=== PATIENT | male | born 1960 | race Caucasian/White ===

== ENCOUNTER 2017-03-16 17:48 | Emergency (ER) | payer BC ==
[2017-03-16] MEDS ORDERED: methylPREDNISolone 125 MG* 2 ML VIAL IV ONE (18:12)
[2017-03-16] MEDS ORDERED: Famotidine IV* 10 MG/ML 2 ML (20 mg) IV SLOW PU ONE (18:12)
[2017-03-16 20:03] VITALS: BP 120/60
--- NOTE | 2017-03-16 21:44 | ED ---
Izzy Ordonez Emily, scribed for Valente Hernandez MD on 03/16/17 at 1818 . Allergic Reaction/Systemic - HPI Summary HPI Summary: This patient is a 56 year old M presenting to [facility] accompanied by family with a chief complaint of an allergic reaction which began at 1630. He reports being stung by a bee. The patient rates the pain 0/10 in severity. Symptoms aggravated by nothing. Symptoms alleviated by nothing. He took Benadryl 75 mg 30 minutes ago. Patient reports throat numbness and diffuse hives. - History of Current Complaint Chief Complaint: EDAllergicReaction Time Seen by Provider: 03/16/17 18:12 Hx Obtained From: Patient Onset/Duration: Sudden Onset, Started hours ago - 1630, Still Present Timing: Constant Severity Initially: Mild Severity Currently: Mild Pain Intensity: 0 Pain Scale Used: 0-10 Numeric Location: Diffuse Character: Hives Aggravating Factor(s): Nothing Alleviating Factor(s): Nothing Associated Signs And Symptoms: Positive: Other: - Throat numbness and diffuse hives - Related Hx Possible Reaction To: Insect - Bee - Allergies/Home Medications Allergies/Adverse Reactions: Allergies Allergy/AdvReac Type Severity Reaction Status Date / Time No Known Allergies Allergy Verified 03/16/17 18:05 PMH/Surg Hx/FS Hx/Imm Hx Sensory History: Denies: Hx Deafness Opthamlomology History: Denies: Hx Legally Blind Infectious Disease History: Denies: Traveled Outside the [place] in Last 30 Days - Family History Known Family History: Positive: Cardiac Disease Negative: Diabetes - Social History Lives: With Family Alcohol Use: None Substance Use Type: Reports: None Smoking Status (MU): Never Smoked Tobacco Review of Systems Positive: Other - Allergic reaction, throat numbness Positive: Other - Diffuse hives All Other Systems Reviewed And Are Negative: Yes Physical Exam Triage Information Reviewed: Yes Vital Signs On Initial Exam: Initial Vitals Temp Pulse Resp BP Pulse Ox 99 F 69 19 139/82 105 03/16/17 18:02 03/16/17 18:02 03/16/17 18:02 03/16/17 18:02 03/16/17 18:02 Vital Signs Reviewed: Yes Appearance: Positive: Well-Appearing, No Pain Distress, Obese Skin: Positive: Warm, Skin Color Reflects Adequate Perfusion, Dry, Other - Diffuse urticaria Head/Face: Positive: Normal Head/Face Inspection Eyes: Positive: EOMI, ALYSON ENT: Positive: Normal ENT inspection Neck: Positive: Supple, Nontender Respiratory/Lung Sounds: Positive: Clear to Auscultation, Breath Sounds Present Cardiovascular: Positive: RRR Abdomen Description: Positive: Nontender, Soft Bowel Sounds: Positive: Present Musculoskeletal: Positive: Normal Neurological: Positive: Normal, Sensory/Motor Intact, Alert, Oriented to Person Place, Time, CN Intact II-III Psychiatric: Positive: Affect/Mood Appropriate Diagnostics - Vital Signs Vital Signs Temp Pulse Resp BP Pulse Ox 03/16/17 18:02 99 F 69 19 139/82 105 - Laboratory Lab Statement: Any lab studies that have been ordered have been reviewed, and results considered in the medical decision making process. Allergic Reaction Course/Dx - Course Course Of Treatment: Mr. Butt was stung by a presumed bee on his back. He began to get itchy and took 75 mgs of PO benadryl. He had diffuse urticaria on arrival about 90 minutes after the sting. He was given additional medications, observed and improved completely. - Diagnoses Provider Diagnoses: Allergic reaction to bee sting Discharge - Discharge Plan Condition: Stable Disposition: HOME Patient Education Materials: General Allergic Reaction (ED) Referrals: Eric Moore MD [Primary Care Provider] - 3 Days The documentation as recorded by the Izzy light Emily accurately reflects the service I personally performed and the decisions made by , Valente Hernandez MD.
== END 2017-03-16 20:43 | disposition home or self-care (01) ==
LOC: ED 17:48
DX: T63.441A Toxic effect of venom of bees, accidental (unintentional), initial encounter (principal); Y92.9 Unspecified place or not applicable
CPT/HCPCS: 96374; 96375; 99283; J2930